=== PATIENT | male | born 1940 | race Caucasian/White ===

== ENCOUNTER 2019-07-16 18:51 | Emergency (ER) | payer MEDICARE ==
[~2019-07-16] VITALS: Ht 180.3 cm; Wt 106.6 kg
[2019-07-16 18:51] VITALS: BP 122/42
[2019-07-16] MEDS ORDERED: CLARITIN10 MG PO (21:41)
[2019-07-16] MEDS ORDERED: ZITHROMAX250 MG PO (21:41)
[2019-07-16] MEDS ORDERED: TESSALON PERLE100 M1 PO (21:41)
== END 2019-07-16 21:53 | disposition home or self-care (01) ==
LOC: ED 18:51
DX: J40 Bronchitis, not specified as acute or chronic (principal); Z88.6 Allergy status to analgesic agent